=== PATIENT | female | born 1980 | race Hispanic/Latino ===

== ENCOUNTER 2022-07-21 15:04 | Outpatient (CLI) | payer OTHER | END 2022-07-21 15:05 | disposition home or self-care (01) | LOC: BICMAMMO 15:04 | DX: Z12.31 Encounter for screening mammogram for malignant neoplasm of breast (principal); N63.20 Unspecified lump in the left breast, unspecified quadrant | CPT/HCPCS: 77063; 77067 ==

== ENCOUNTER 2022-07-23 15:48 | Outpatient (CLI) | payer OTHER | END 2022-07-23 15:49 | disposition home or self-care (01) | LOC: BICULT 15:48 | DX: N63.25 Unspecified lump in the left breast, overlapping quadrants (principal) ==

== ENCOUNTER → 2022-08-09 | Day surgery (SDC) | payer OTHER | END | disposition home or self-care (01) | LOC: BICULT 12:30 | PROVIDERS: ATTEND Family Medicine | PROC: 0H9U3ZX Drainage of Left Breast, Percutaneous Approach, Diagnostic (ICD-10-PCS; principal; 2022-08-09) | DX: N60.32 Fibrosclerosis of left breast (principal) | CPT/HCPCS: 19083; 88305 ==